=== PATIENT | female | born 1945 | race Caucasian/White ===

== ENCOUNTER 2023-04-16 15:28 | Emergency (ER) | payer MEDICARE, BC, OTHER ==
[2023-04-16] MEDS ORDERED: Acetaminophen 325 MG Tab PO ONE (17:29)
[2023-04-16] MEDS ORDERED: Bupivacaine 0.5% 10 ML SDV INJECT ONE (17:29)
[2023-04-16] MEDS ORDERED: Lidocaine 1% 10 ML MDV INJECT ONE (17:29)
[2023-04-16] MEDS ORDERED: traMADol 50 MG Tab PO ONE (18:53)
[2023-04-16] MEDS ORDERED: Ondansetron 4 MG Tab.DIS PO ONE (18:53)
== END 2023-04-16 20:41 | disposition home or self-care (01) ==
LOC: JD.ED 15:28
DX: S52.592A Other fractures of lower end of left radius, initial encounter for closed fracture (principal); Z88.5 Allergy status to narcotic agent; W18.30XA Fall on same level, unspecified, initial encounter; Y92.830 Public park as the place of occurrence of the external cause
CPT/HCPCS: 25605; 73110; 99283; A9270; J3490